=== PATIENT | male | born 1985 | race African-American/Black ===

== ENCOUNTER 2022-06-07 16:15 | Inpatient (IN) | payer OTHER ==
[2022-06-07] MEDS ORDERED: NALOXONE HCL (KLOXXADO) 8 MG SPRAY NS PRN (21:25)
[2022-06-07] MEDS ORDERED: BENZOCAINE/MENTHOL (CHLORASEPTIC ) LOZENGE MM PRN (21:25)
[2022-06-07] MEDS ORDERED: METHOCARBAMOL 500 MG TABLET PO PRN (21:25)
[2022-06-07] MEDS ORDERED: MAGNESIUM HYDROX 2400MG/30ML ORAL SUSPENSION 30 ML CUP PO PRN (21:25)
[2022-06-07] MEDS ORDERED: DICYCLOMINE HCL 10 MG CAPSULE PO PRN (21:25)
[2022-06-07] MEDS ORDERED: NICOTINE POLACRILEX 2 MG GUM BUC PRN (21:25)
[2022-06-07] MEDS ORDERED: guaiFENesin 200 MG/10 ML 10 ML UNIT-DOSE CUPS PO PRN (21:25)
[2022-06-07] MEDS ORDERED: IBUPROFEN 400 MG TABLET (FP) PO PRN (21:25)
[2022-06-07] MEDS ORDERED: LOPERAMIDE HCL 2 MG CAPSULE PO PRN (21:25)
[2022-06-07] MEDS ORDERED: P-EPHED 60MG/TRIPROLIDI 2.5MG TABLET PO PRN (21:25)
[2022-06-07] MEDS ORDERED: IBUPROFEN 600 MG TABLET (FP) PO PRN (21:25)
[2022-06-07] MEDS ORDERED: hydrOXYzine PAMOATE 25 MG CAPSULE (FP) PO PRN (21:25)
[2022-06-07] MEDS ORDERED: MAG HYDROX/AL HYDROX/SIMETH 30 ML UNIT-DOSE CUP PO PRN (21:25)
[2022-06-07] MEDS ORDERED: BISMUTH SUBSALICYLATE 524 MG/30 ML PO PRN (21:25)
[2022-06-07] MEDS ORDERED: ACETAMINOPHEN 325 MG TABLET (FP) PO PRN ×2 (21:25)
[2022-06-07] MEDS ORDERED: ONDANSETRON *ODT* 4 MG TABLET SL PRN (21:25)
[2022-06-07] MEDS ORDERED: MAGNESIUM CITRATE 300 ML BOTTLE PO PRN (21:25)
[2022-06-08] MEDS: MELATONIN 5 MG TABLETS PO SCH ×2 (03:36→22:17)
[2022-06-08] MEDS: THIAMINE HCL 100 MG TABLET (FP) PO SCH ×2 (03:37→22:17)
[2022-06-08 09:42] LABS: HEMATOCRIT 39.2 % (35.4-49); HEMOGLOBIN 13.8 GM/dL (11.7-16.9); MCH 30.9 pg (25.7-33.7); MCHC 35.1 g/dl (32.0-35.9); MEAN PLT VOLUME 8.1 fl (7.5-11.1); PLATELET COUNT 283 10^3/uL (134-434); RBC 4.46 M/mm3 (4.00-5.60); RDW 13.2 % (11.9-15.9); WHITE BLOOD COUNT 5.2 K/mm3 (4.0-10.0)
[2022-06-08 10:01] LABS: BLOOD UREA NITROGEN 12.9 mg/dL (7-18)
[2022-06-08 10:02] LABS: ALBUMIN 3.3 g/dl (3.4-5.0)
[2022-06-08 10:03] LABS: BILIRUBIN,TOTAL 0.3 mg/dL (0.2-1); TOT PROT 5.9 g/dl (6.4-8.2)
[2022-06-08 10:04] LABS: CREATININE 0.6 mg/dL (0.55-1.3)
[2022-06-08] MEDS: NICOTINE 14 MG/24 HOURS TOPICAL PATCH TD SCH (10:36)
[2022-06-08] MEDS: PRENATAL VITAMINS W/ FOLIC ACID TABLET (FP) PO SCH (10:37)
[2022-06-09] MEDS: NICOTINE 14 MG/24 HOURS TOPICAL PATCH TD SCH (10:19)
[2022-06-09] MEDS: PRENATAL VITAMINS W/ FOLIC ACID TABLET (FP) PO SCH (10:19)
[2022-06-09] MEDS ORDERED: diazePAM 5 MG TABLET PO PRN (14:51)
[2022-06-09] MEDS: diazePAM 5 MG TABLET PO SCH ×2 (17:51→22:05)
[2022-06-09] MEDS: THIAMINE HCL 100 MG TABLET (FP) PO SCH (22:05)
[2022-06-09] MEDS: MELATONIN 5 MG TABLETS PO SCH (22:07)
[2022-06-10] MEDS: diazePAM 5 MG TABLET PO SCH ×4 (05:48→22:10)
[2022-06-10] MEDS: NICOTINE 14 MG/24 HOURS TOPICAL PATCH TD SCH (10:34)
[2022-06-10] MEDS: PRENATAL VITAMINS W/ FOLIC ACID TABLET (FP) PO SCH (10:34)
[2022-06-10] MEDS: MELATONIN 5 MG TABLETS PO SCH (22:10)
[2022-06-10] MEDS: THIAMINE HCL 100 MG TABLET (FP) PO SCH (22:10)
[2022-06-10] MEDS: NICOTINE 10 MG CARTRIDGE (INHALER) IH PRN (22:40)
[2022-06-11] MEDS: diazePAM 5 MG TABLET PO SCH ×3 (05:47→22:48)
[2022-06-11] MEDS: PRENATAL VITAMINS W/ FOLIC ACID TABLET (FP) PO SCH (10:08)
[2022-06-11] MEDS: NICOTINE 10 MG CARTRIDGE (INHALER) IH PRN ×5 (10:13→23:04)
[2022-06-11 21:33] VITALS: TEMP 97.1
[2022-06-11] MEDS: MELATONIN 5 MG TABLETS PO SCH (22:47)
[2022-06-11] MEDS: THIAMINE HCL 100 MG TABLET (FP) PO SCH (22:48)
[2022-06-12] MEDS ORDERED: diazePAM 5 MG TABLET PO SCH (06:00)
[2022-06-12 09:05] VITALS: BP 156/89; PULSE 103; RESP 18
[2022-06-12] MEDS: PRENATAL VITAMINS W/ FOLIC ACID TABLET (FP) PO SCH (11:09)
[2022-06-13] MEDS ORDERED: diazePAM 5 MG TABLET PO ONE (06:00)
== END 2022-06-12 08:58 | disposition home or self-care (01) | DRG 774 ==
LOC: YASAS 16:15 → Y3N 06-08 02:30 → UNDOADMIN 06-08 02:30 → Y3N 06-11 18:30
PROVIDERS: ADMIT Allergy & Immunology; ATTEND Allergy & Immunology
PROC: HZ2ZZZZ Detoxification Services for Substance Abuse Treatment (ICD-10-PCS; principal; 2022-06-08)
DX: F10.230 Alcohol dependence with withdrawal, uncomplicated (principal); F14.20 Cocaine dependence, uncomplicated; F12.20 Cannabis dependence, uncomplicated; F17.210 Nicotine dependence, cigarettes, uncomplicated; F19.24 Other psychoactive substance dependence with psychoactive substance-induced mood disorder; M25.562 Pain in left knee; M25.561 Pain in right knee; G89.29 Other chronic pain
CPT/HCPCS: 36415; 80053; 85027; 86780; 93005; 93010; C9803-CS; U0003; U0005

== ENCOUNTER 2022-09-10 18:07 | Inpatient (IN) | payer OTHER ==
[2022-09-10 18:52] VITALS: BMI 26.9
[2022-09-10] MEDS ORDERED: LOPERAMIDE HCL 2 MG CAPSULE PO PRN (19:49)
[2022-09-10] MEDS ORDERED: MAGNESIUM HYDROX 2400MG/30ML ORAL SUSPENSION 30 ML CUP PO PRN (19:49)
[2022-09-10] MEDS ORDERED: guaiFENesin 200 MG/10 ML 10 ML UNIT-DOSE CUPS PO PRN (19:49)
[2022-09-10] MEDS ORDERED: MAG HYDROX/AL HYDROX/SIMETH 30 ML UNIT-DOSE CUP PO PRN (19:49)
[2022-09-10] MEDS ORDERED: P-EPHED 60MG/TRIPROLIDI 2.5MG TABLET PO PRN (19:49)
[2022-09-10] MEDS ORDERED: IBUPROFEN 400 MG TABLET (FP) PO PRN (19:49)
[2022-09-10] MEDS ORDERED: METHOCARBAMOL 500 MG TABLET PO PRN (19:49)
[2022-09-10] MEDS ORDERED: IBUPROFEN 600 MG TABLET (FP) PO PRN (19:49)
[2022-09-10] MEDS ORDERED: BISMUTH SUBSALICYLATE 524 MG/30 ML PO PRN (19:49)
[2022-09-10] MEDS ORDERED: ACETAMINOPHEN 325 MG TABLET (FP) PO PRN ×2 (19:49)
[2022-09-10] MEDS ORDERED: ONDANSETRON *ODT* 4 MG TABLET SL PRN (19:49)
[2022-09-10] MEDS ORDERED: POLYETHYLENE GLYCOL (HEALTHYLAX) 3350 17 GM PACKET PO PRN (19:49)
[2022-09-10] MEDS ORDERED: BENZOCAINE/MENTHOL (CHLORASEPTIC ) LOZENGE MM PRN (19:49)
[2022-09-10] MEDS ORDERED: MELATONIN 5 MG TABLETS PO PRN (19:49)
[2022-09-10] MEDS ORDERED: DICYCLOMINE HCL 10 MG CAPSULE PO PRN (19:49)
[2022-09-10] MEDS ORDERED: THIAMINE HCL 100 MG TABLET (FP) PO SCH (22:00)
[2022-09-11] MEDS ORDERED: PRENATAL VITAMINS W/ FOLIC ACID TABLET (FP) PO SCH (10:00)
[2022-09-11 11:46] LABS: HEMATOCRIT 42.7 % (35.4-49); HEMOGLOBIN 14.2 GM/dL (11.7-16.9); MCH 29.6 pg (25.7-33.7); MCHC 33.2 g/dl (32.0-35.9); PLATELET COUNT 327 10^3/uL (134-434); RDW 13.4 % (11.9-15.9); WHITE BLOOD COUNT 4.7 K/mm3 (4.0-10.0)
[2022-09-11 11:50] LABS: CALCIUM 8.8 mg/dL (8.5-10.1)
[2022-09-11 11:51] LABS: ALBUMIN 3.4 g/dl (3.4-5.0); BLOOD UREA NITROGEN 11.6 mg/dL (7-18)
[2022-09-11 11:54] LABS: CREATININE 0.6 mg/dL (0.55-1.3)
[2022-09-11 11:55] LABS: BILIRUBIN,TOTAL 0.3 mg/dL (0.2-1); TOT PROT 6.4 g/dl (6.4-8.2)
[2022-09-11] MEDS: NICOTINE POLACRILEX 2 MG GUM BUC PRN ×2 (15:51→17:51)
[2022-09-11 16:42] VITALS: BP 112/60; PULSE 78; RESP 19; TEMP 97.5
== END 2022-09-11 18:57 | disposition other institution (70) | DRG 774 ==
LOC: YASAS 18:07 → Y3N 21:03
PROVIDERS: ADMIT Allergy & Immunology; ATTEND Surgery
PROC: HZ2ZZZZ Detoxification Services for Substance Abuse Treatment (ICD-10-PCS; principal; 2022-09-10)
DX: F10.230 Alcohol dependence with withdrawal, uncomplicated (principal); F14.20 Cocaine dependence, uncomplicated; F12.20 Cannabis dependence, uncomplicated; F17.210 Nicotine dependence, cigarettes, uncomplicated
CPT/HCPCS: 36415; 80053; 85027; 86780; C9803-CS; U0003; U0005

== ENCOUNTER 2022-09-11 14:27 | Inpatient (IN) | payer OTHER ==
[2022-09-11] MEDS ORDERED: guaiFENesin 200 MG/10 ML 10 ML UNIT-DOSE CUPS PO PRN (19:06)
[2022-09-11] MEDS ORDERED: MAG HYDROX/AL HYDROX/SIMETH 30 ML UNIT-DOSE CUP PO PRN (19:06)
[2022-09-11] MEDS ORDERED: MELATONIN 5 MG TABLETS PO PRN (19:06)
[2022-09-11] MEDS ORDERED: POLYETHYLENE GLYCOL (HEALTHYLAX) 3350 17 GM PACKET PO PRN (19:06)
[2022-09-11] MEDS ORDERED: P-EPHED 60MG/TRIPROLIDI 2.5MG TABLET PO PRN (19:06)
[2022-09-11] MEDS ORDERED: BENZOCAINE/MENTHOL (CHLORASEPTIC ) LOZENGE MM PRN (19:06)
[2022-09-11] MEDS ORDERED: IBUPROFEN 400 MG TABLET (FP) PO PRN (19:06)
[2022-09-11] MEDS ORDERED: MAGNESIUM HYDROX 2400MG/30ML ORAL SUSPENSION 30 ML CUP PO PRN (19:06)
[2022-09-11] MEDS ORDERED: LOPERAMIDE HCL 2 MG CAPSULE PO PRN (19:06)
[2022-09-11] MEDS: THIAMINE HCL 100 MG TABLET (FP) PO SCH (21:32)
[2022-09-12] MEDS: ACETAMINOPHEN 325 MG TABLET (FP) PO PRN ×3 (09:54→21:29)
[2022-09-12] MEDS ORDERED: PRENATAL VITAMINS W/ FOLIC ACID TABLET (FP) PO SCH (10:00)
[2022-09-12] MEDS ORDERED: PRENATAL VITAMINS W/ FOLIC ACID TABLET (FP) PO PRN (12:35)
[2022-09-12] MEDS: THIAMINE HCL 100 MG TABLET (FP) PO SCH (21:29)
[2022-09-12] MEDS ORDERED: INSULIN (LEVEMIR) 100 UNITS/ML UNITS SQ ONE (23:44)
[2022-09-12] MEDS ORDERED: INSULIN (NOVOLOG) ASPART 100 UNITS/ML 10ML VIAL ONE (23:44)
[2022-09-13] MEDS: NICOTINE POLACRILEX 2 MG GUM BUC PRN (09:48)
[2022-09-13] MEDS: NICOTINE 10 MG CARTRIDGE (INHALER) IH SCH (11:52)
[2022-09-13 12:49] LABS: HIV INTERPRETATION NEGATIVE (NEGATIVE)
[2022-09-13] MEDS: THIAMINE HCL 100 MG TABLET (FP) PO SCH (21:27)
[2022-09-14] MEDS: NICOTINE 10 MG CARTRIDGE (INHALER) IH SCH (10:08)
[2022-09-14] MEDS: LACTULOSE 20 GM/30 ML UDC (FOR ORAL USE ONLY) PO SCH ×2 (13:05→21:17)
[2022-09-14] MEDS: NICOTINE POLACRILEX 2 MG GUM BUC PRN (13:25)
[2022-09-14] MEDS: THIAMINE HCL 100 MG TABLET (FP) PO SCH (21:17)
[2022-09-14] MEDS: ACETAMINOPHEN 325 MG TABLET (FP) PO PRN (21:17)
[2022-09-15] MEDS: NICOTINE POLACRILEX 2 MG GUM BUC PRN (06:16)
[2022-09-15 07:39] VITALS: RESP 18; TEMP 97.1
[2022-09-15] MEDS: NICOTINE 10 MG CARTRIDGE (INHALER) IH SCH (09:17)
[2022-09-15] MEDS: LACTULOSE 20 GM/30 ML UDC (FOR ORAL USE ONLY) PO SCH ×2 (09:17→21:31)
[2022-09-15] MEDS: THIAMINE HCL 100 MG TABLET (FP) PO SCH (21:31)
[2022-09-16 06:20] VITALS: BP 132/88; PULSE 95
[2022-09-16] MEDS: NICOTINE 10 MG CARTRIDGE (INHALER) IH SCH (09:43)
[2022-09-16] MEDS: LACTULOSE 20 GM/30 ML UDC (FOR ORAL USE ONLY) PO SCH ×2 (09:43→21:27)
[2022-09-16] MEDS: THIAMINE HCL 100 MG TABLET (FP) PO SCH (21:27)
[2022-09-17] MEDS: NICOTINE 10 MG CARTRIDGE (INHALER) IH SCH (09:26)
[2022-09-17] MEDS: LACTULOSE 20 GM/30 ML UDC (FOR ORAL USE ONLY) PO SCH (09:26)
== END 2022-09-17 10:15 | disposition left against medical advice (07) | DRG 770 ==
LOC: YASAS 14:27 → Y3E 14:28
PROVIDERS: ADMIT Allergy & Immunology; ATTEND Psychiatry & Neurology Pain Medicine
PROC: HZ42ZZZ Group Counseling for Substance Abuse Treatment, Cognitive-Behavioral (ICD-10-PCS; principal; 2022-09-11)
DX: F10.20 Alcohol dependence, uncomplicated (principal); F14.20 Cocaine dependence, uncomplicated; F12.20 Cannabis dependence, uncomplicated; F17.210 Nicotine dependence, cigarettes, uncomplicated; F22 Delusional disorders; F19.24 Other psychoactive substance dependence with psychoactive substance-induced mood disorder; M25.561 Pain in right knee; M25.562 Pain in left knee; G89.29 Other chronic pain; R79.89 Other specified abnormal findings of blood chemistry
CPT/HCPCS: 36415; 82140; 87389

== ENCOUNTER 2023-01-18 17:52 | Inpatient (IN) | payer OTHER ==
[2023-01-18 19:09] VITALS: BMI 27.4
[2023-01-18] MEDS ORDERED: MAGNESIUM HYDROX 2400MG/30ML ORAL SUSPENSION 30 ML CUP PO PRN (19:27)
[2023-01-18] MEDS ORDERED: NALOXONE HCL (KLOXXADO) 8 MG SPRAY NS PRN (19:27)
[2023-01-18] MEDS ORDERED: BENZOCAINE/MENTHOL (CHLORASEPTIC ) LOZENGE MM PRN (19:27)
[2023-01-18] MEDS ORDERED: AMMONIUM LACTATE 12% LOTION 225 GM BOTTLE TP PRN (19:27)
[2023-01-18] MEDS ORDERED: LOPERAMIDE HCL 2 MG CAPSULE PO PRN (19:27)
[2023-01-18] MEDS ORDERED: POLYETHYLENE GLYCOL (HEALTHYLAX) 3350 17 GM PACKET PO PRN (19:27)
[2023-01-18] MEDS ORDERED: guaiFENesin 600 MG TABLET.ER (FP) PO PRN (19:27)
[2023-01-18] MEDS ORDERED: COLLOIDAL OATMEAL 1 BAR EACH TP PRN (19:27)
[2023-01-18] MEDS ORDERED: IBUPROFEN 400 MG TABLET (FP) PO PRN (19:27)
[2023-01-18] MEDS ORDERED: BENZONATATE 200 MG CAPSULE PO PRN (19:27)
[2023-01-18] MEDS ORDERED: hydrOXYzine PAMOATE 25 MG CAPSULE (FP) PO PRN (19:27)
[2023-01-18] MEDS ORDERED: NALOXONE HCL 0.4 MG/ML VIAL IM PRN (19:27)
[2023-01-18] MEDS ORDERED: MAG HYDROX/AL HYDROX/SIMETH 30 ML UNIT-DOSE CUP PO PRN (19:27)
[2023-01-18] MEDS ORDERED: CEPHALEXIN MONOHYDRATE 500 MG CAPSULE (UD) PO SCH (22:00)
[2023-01-19] MEDS: THIAMINE HCL 100 MG TABLET (FP) PO SCH ×2 (00:56→21:25)
[2023-01-19] MEDS: MELATONIN 5 MG TABLETS PO SCH ×2 (00:56→21:25)
[2023-01-19] MEDS: IBUPROFEN 600 MG TABLET (FP) PO PRN (00:57)
[2023-01-19] MEDS: SULFAMETHOXAZOLE/TRIMETHOPRIM 800MG/160MG D.S. TABLET PO SCH ×3 (00:58→21:25)
[2023-01-19] MEDS: PRENATAL VITAMINS W/ FOLIC ACID TABLET (FP) PO SCH (09:47)
[2023-01-19] MEDS: NICOTINE 7 MG/24 HOURS TOPICAL PATCH TD SCH (09:54)
[2023-01-19] MEDS: NICOTINE POLACRILEX 2 MG GUM BUC PRN (10:48)
[2023-01-19 11:01] LABS: POTASSIUM 4.4 mmol/L (3.5-5.1)
[2023-01-19 11:05] LABS: CALCIUM 8.9 mg/dL (8.5-10.1)
[2023-01-19 11:06] LABS: ALBUMIN 3.1 g/dl (3.4-5.0); BLOOD UREA NITROGEN 10.2 mg/dL (7-18)
[2023-01-19 11:07] LABS: HEMATOCRIT 40.8 % (35.4-49); HEMOGLOBIN 13.9 GM/dL (11.7-16.9); MCH 29.4 pg (25.7-33.7); MCHC 34.1 g/dl (32.0-35.9); MEAN CELL VOLUME 86.2 fl (80-96); MEAN PLT VOLUME 8.2 fl (7.5-11.1); PLATELET COUNT 308 10^3/uL (134-434); RBC 4.73 M/mm3 (4.00-5.60); RDW 13.2 % (11.9-15.9); WHITE BLOOD COUNT 5.2 K/mm3 (4.0-10.0)
[2023-01-19 11:09] LABS: CREATININE 0.6 mg/dL (0.55-1.3)
[2023-01-19 11:10] LABS: TOT PROT 6.1 g/dl (6.4-8.2)
[2023-01-19 11:11] LABS: BILIRUBIN,TOTAL 0.3 mg/dL (0.2-1)
[2023-01-20] MEDS: SULFAMETHOXAZOLE/TRIMETHOPRIM 800MG/160MG D.S. TABLET PO SCH ×2 (10:20→21:39)
[2023-01-20] MEDS: PRENATAL VITAMINS W/ FOLIC ACID TABLET (FP) PO SCH (10:20)
[2023-01-20] MEDS: NICOTINE POLACRILEX 2 MG GUM BUC PRN ×2 (10:21→12:50)
[2023-01-20] MEDS: NICOTINE 7 MG/24 HOURS TOPICAL PATCH TD SCH (10:22)
[2023-01-20] MEDS: IBUPROFEN 600 MG TABLET (FP) PO PRN (18:35)
[2023-01-20] MEDS: MELATONIN 5 MG TABLETS PO SCH (21:39)
[2023-01-20] MEDS: THIAMINE HCL 100 MG TABLET (FP) PO SCH (21:39)
[2023-01-20] MEDS: NICOTINE 10 MG CARTRIDGE (INHALER) IH PRN (22:24)
[2023-01-21] MEDS: NICOTINE 10 MG CARTRIDGE (INHALER) IH PRN ×2 (08:50→21:37)
[2023-01-21] MEDS: SULFAMETHOXAZOLE/TRIMETHOPRIM 800MG/160MG D.S. TABLET PO SCH ×2 (09:20→21:35)
[2023-01-21] MEDS: NICOTINE 7 MG/24 HOURS TOPICAL PATCH TD SCH (09:20)
[2023-01-21] MEDS: PRENATAL VITAMINS W/ FOLIC ACID TABLET (FP) PO SCH (09:20)
[2023-01-21] MEDS: IBUPROFEN 600 MG TABLET (FP) PO PRN (09:21)
[2023-01-21 10:55] LABS: EPI CELLS 2 /uL (0-25.1); HYALINE CASTS 2 /uL (0-3.1); URINE APPEARANCE CLEAR; URINE BACTERIA 5 /uL (0-1359); URINE BILIRUBIN NEGATIVE (NEGATIVE); URINE COLOR YELLOW; URINE GLUCOSE (UA) NEGATIVE (NEGATIVE); URINE KETONE TRACE (NEGATIVE); URINE LEUK ESTERASE NEGATIVE (NEGATIVE); URINE NITRITE NEGATIVE (NEGATIVE); URINE PROTEIN NEGATIVE (NEGATIVE); URINE RBC 17 /uL (0-23.9); URINE UROBILINOGEN 0.2 mg/dL (0.2-1.0); URINE WBC 3 /uL (0-25.8)
[2023-01-21] MEDS ORDERED: NICOTINE 7 MG/24 HOURS TOPICAL PATCH TD PRN (12:19)
[2023-01-21] MEDS: MELATONIN 5 MG TABLETS PO SCH (21:35)
[2023-01-21] MEDS: THIAMINE HCL 100 MG TABLET (FP) PO SCH (21:35)
[2023-01-22] MEDS: PRENATAL VITAMINS W/ FOLIC ACID TABLET (FP) PO SCH (10:05)
[2023-01-22] MEDS: SULFAMETHOXAZOLE/TRIMETHOPRIM 800MG/160MG D.S. TABLET PO SCH ×2 (10:05→21:36)
[2023-01-22] MEDS: NICOTINE POLACRILEX 2 MG GUM BUC PRN ×2 (10:05→19:07)
[2023-01-22] MEDS: NICOTINE 10 MG CARTRIDGE (INHALER) IH PRN (10:05)
[2023-01-22] MEDS: IBUPROFEN 600 MG TABLET (FP) PO PRN (19:04)
[2023-01-22] MEDS: MELATONIN 5 MG TABLETS PO SCH (21:35)
[2023-01-22] MEDS: THIAMINE HCL 100 MG TABLET (FP) PO SCH (21:36)
[2023-01-23] MEDS: NICOTINE 10 MG CARTRIDGE (INHALER) IH PRN (06:32)
[2023-01-23] MEDS: PRENATAL VITAMINS W/ FOLIC ACID TABLET (FP) PO SCH (09:56)
[2023-01-23] MEDS: SULFAMETHOXAZOLE/TRIMETHOPRIM 800MG/160MG D.S. TABLET PO SCH ×2 (09:56→21:50)
[2023-01-23] MEDS: NICOTINE POLACRILEX 2 MG GUM BUC PRN ×3 (09:58→21:53)
[2023-01-23] MEDS ORDERED: NICOTINE 21 MG/24 HOURS TOPICAL PATCH TD PRN (12:21)
[2023-01-23] MEDS: ACETAMINOPHEN 325 MG TABLET (FP) PO PRN (17:24)
[2023-01-23] MEDS: MELATONIN 5 MG TABLETS PO SCH (21:48)
[2023-01-23] MEDS: THIAMINE HCL 100 MG TABLET (FP) PO SCH (21:50)
[2023-01-23] MEDS: IBUPROFEN 600 MG TABLET (FP) PO PRN (21:50)
[2023-01-24] MEDS: SULFAMETHOXAZOLE/TRIMETHOPRIM 800MG/160MG D.S. TABLET PO SCH ×2 (10:06→21:21)
[2023-01-24] MEDS: PRENATAL VITAMINS W/ FOLIC ACID TABLET (FP) PO SCH (10:06)
[2023-01-24] MEDS: NICOTINE POLACRILEX 2 MG GUM BUC PRN ×3 (10:07→21:22)
[2023-01-24] MEDS: THIAMINE HCL 100 MG TABLET (FP) PO SCH (21:21)
[2023-01-24] MEDS: MELATONIN 5 MG TABLETS PO SCH (21:21)
[2023-01-25] MEDS: PRENATAL VITAMINS W/ FOLIC ACID TABLET (FP) PO SCH (09:49)
[2023-01-25] MEDS: SULFAMETHOXAZOLE/TRIMETHOPRIM 800MG/160MG D.S. TABLET PO SCH ×2 (09:49→21:08)
[2023-01-25] MEDS: NICOTINE POLACRILEX 2 MG GUM BUC PRN ×3 (09:50→23:47)
[2023-01-25] MEDS: THIAMINE HCL 100 MG TABLET (FP) PO SCH (21:08)
[2023-01-25] MEDS: MELATONIN 5 MG TABLETS PO SCH (21:09)
[2023-01-26] MEDS: NICOTINE POLACRILEX 2 MG GUM BUC PRN ×2 (09:46→21:33)
[2023-01-26] MEDS: PRENATAL VITAMINS W/ FOLIC ACID TABLET (FP) PO SCH (09:46)
[2023-01-26] MEDS: THIAMINE HCL 100 MG TABLET (FP) PO SCH (21:31)
[2023-01-26] MEDS: MELATONIN 5 MG TABLETS PO SCH (21:31)
[2023-01-26] MEDS: ACETAMINOPHEN 325 MG TABLET (FP) PO PRN (21:32)
[2023-01-27] MEDS: PRENATAL VITAMINS W/ FOLIC ACID TABLET (FP) PO SCH (09:55)
[2023-01-27] MEDS: NICOTINE POLACRILEX 2 MG GUM BUC PRN ×3 (09:59→18:06)
[2023-01-27] MEDS: ACETAMINOPHEN 325 MG TABLET (FP) PO PRN ×2 (13:53→21:30)
[2023-01-27] MEDS: THIAMINE HCL 100 MG TABLET (FP) PO SCH (21:30)
[2023-01-27] MEDS: MELATONIN 5 MG TABLETS PO SCH (21:32)
[2023-01-28] MEDS: PRENATAL VITAMINS W/ FOLIC ACID TABLET (FP) PO SCH (10:23)
[2023-01-28] MEDS: THIAMINE HCL 100 MG TABLET (FP) PO SCH (22:26)
[2023-01-29] MEDS: PRENATAL VITAMINS W/ FOLIC ACID TABLET (FP) PO SCH (09:49)
[2023-01-29] MEDS: ACETAMINOPHEN 325 MG TABLET (FP) PO PRN (09:50)
[2023-01-29] MEDS: THIAMINE HCL 100 MG TABLET (FP) PO SCH (21:28)
[2023-01-30] MEDS: PRENATAL VITAMINS W/ FOLIC ACID TABLET (FP) PO SCH (10:07)
[2023-01-30] MEDS: THIAMINE HCL 100 MG TABLET (FP) PO SCH (21:22)
[2023-01-31] MEDS: PRENATAL VITAMINS W/ FOLIC ACID TABLET (FP) PO SCH (09:26)
[2023-01-31] MEDS: TOLNAFTATE 1% CREAM 15 GM TUBE TP SCH (21:42)
[2023-01-31] MEDS: SULFAMETHOXAZOLE/TRIMETHOPRIM 800MG/160MG D.S. TABLET PO SCH (21:42)
[2023-01-31] MEDS: THIAMINE HCL 100 MG TABLET (FP) PO SCH (21:43)
[2023-02-01] MEDS: PRENATAL VITAMINS W/ FOLIC ACID TABLET (FP) PO SCH (09:54)
[2023-02-01] MEDS: TOLNAFTATE 1% CREAM 15 GM TUBE TP SCH ×2 (09:54→21:24)
[2023-02-01] MEDS: SULFAMETHOXAZOLE/TRIMETHOPRIM 800MG/160MG D.S. TABLET PO SCH ×2 (09:54→21:24)
[2023-02-01] MEDS: THIAMINE HCL 100 MG TABLET (FP) PO SCH (21:24)
[2023-02-01] MEDS: NICOTINE POLACRILEX 2 MG GUM BUC PRN (21:26)
[2023-02-02] MEDS: SULFAMETHOXAZOLE/TRIMETHOPRIM 800MG/160MG D.S. TABLET PO SCH ×2 (09:47→21:26)
[2023-02-02] MEDS: TOLNAFTATE 1% CREAM 15 GM TUBE TP SCH ×2 (09:47→21:26)
[2023-02-02] MEDS: PRENATAL VITAMINS W/ FOLIC ACID TABLET (FP) PO SCH (09:47)
[2023-02-02] MEDS: NICOTINE POLACRILEX 2 MG GUM BUC PRN (09:48)
[2023-02-02] MEDS: THIAMINE HCL 100 MG TABLET (FP) PO SCH (21:26)
[2023-02-03] MEDS: SULFAMETHOXAZOLE/TRIMETHOPRIM 800MG/160MG D.S. TABLET PO SCH (10:38)
[2023-02-03] MEDS: PRENATAL VITAMINS W/ FOLIC ACID TABLET (FP) PO SCH (10:38)
[2023-02-03] MEDS: TOLNAFTATE 1% CREAM 15 GM TUBE TP SCH ×2 (10:39→21:32)
[2023-02-03] MEDS: NICOTINE POLACRILEX 2 MG GUM BUC PRN (10:40)
[2023-02-03] MEDS: THIAMINE HCL 100 MG TABLET (FP) PO SCH (21:31)
[2023-02-04] MEDS: TOLNAFTATE 1% CREAM 15 GM TUBE TP SCH ×2 (09:25→21:35)
[2023-02-04] MEDS: PRENATAL VITAMINS W/ FOLIC ACID TABLET (FP) PO SCH (09:26)
[2023-02-04] MEDS: NICOTINE POLACRILEX 2 MG GUM BUC PRN (09:26)
[2023-02-04] MEDS ORDERED: PRENATAL VITAMINS W/ FOLIC ACID TABLET (FP) PO PRN (12:20)
[2023-02-04] MEDS: THIAMINE HCL 100 MG TABLET (FP) PO SCH (21:34)
[2023-02-04] MEDS: ACETAMINOPHEN 325 MG TABLET (FP) PO PRN (21:35)
[2023-02-05 06:45] VITALS: BP 110/76; PULSE 69; RESP 18; TEMP 97.9
[2023-02-05] MEDS: TOLNAFTATE 1% CREAM 15 GM TUBE TP SCH ×2 (10:08→21:32)
[2023-02-05] MEDS: NICOTINE POLACRILEX 2 MG GUM BUC PRN (10:08)
[2023-02-05] MEDS: THIAMINE HCL 100 MG TABLET (FP) PO SCH (21:33)
[2023-02-06] MEDS: NICOTINE POLACRILEX 2 MG GUM BUC PRN (08:39)
== END 2023-02-06 09:50 | disposition home or self-care (01) | DRG 772 ==
LOC: YASAS 17:52 → Y3E 20:46
PROVIDERS: ADMIT Allergy & Immunology; ATTEND Allergy & Immunology
PROC: HZ42ZZZ Group Counseling for Substance Abuse Treatment, Cognitive-Behavioral (ICD-10-PCS; principal; 2023-01-18)
DX: F14.20 Cocaine dependence, uncomplicated (principal); F12.20 Cannabis dependence, uncomplicated; F17.210 Nicotine dependence, cigarettes, uncomplicated; F19.282 Other psychoactive substance dependence with psychoactive substance-induced sleep disorder; F19.24 Other psychoactive substance dependence with psychoactive substance-induced mood disorder; F32.A Depression, unspecified; M25.561 Pain in right knee; M25.562 Pain in left knee; G89.29 Other chronic pain; S81.801A Unspecified open wound, right lower leg, initial encounter; L08.9 Local infection of the skin and subcutaneous tissue, unspecified; X58.XXXA Exposure to other specified factors, initial encounter; Y93.9 Activity, unspecified; Y92.9 Unspecified place or not applicable; Y99.9 Unspecified external cause status
CPT/HCPCS: 36415; 80053; 81003; 85027; 86780; C9803-CS; U0003; U0005